=== PATIENT | female | born 1985 | race Two or more races ===

== ENCOUNTER 2023-08-16 19:40 | Emergency (ER) | payer OTHER ==
[~2023-08-16] VITALS: Ht 162.6 cm; Wt 63.6 kg
[2023-08-16 20:05] VITALS: BP 140/85; PULSE 85; RESP 18; TEMP 98; O2SAT 99
[2023-08-16] MEDS ORDERED: IBUPROFEN 800 MG TAB PO ONE (21:45)
[2023-08-16] MEDS ORDERED: IBUP-1456 PO (23:18)
[2023-08-16] MEDS ORDERED: CYCL-837 PO (23:18)
== END 2023-08-16 23:19 | disposition home or self-care (01) ==
LOC: EDBD 19:40 → ER 19:40
DX: S16.1XXA Strain of muscle, fascia and tendon at neck level, initial encounter (principal); R51.9 Headache, unspecified; M62.838 Other muscle spasm; M54.6 Pain in thoracic spine; Z91.040 Latex allergy status; V49.9XXA Car occupant (driver) (passenger) injured in unspecified traffic accident, initial encounter; Y93.89 Activity, other specified; Y92.488 Other paved roadways as the place of occurrence of the external cause; Y99.8 Other external cause status
CPT/HCPCS: 70450; 72125